=== PATIENT | female | born 2005 | race Two or more races ===

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

== ENCOUNTER 2025-05-16 20:56 | Emergency (ER) | payer MEDICAID, SELFPAY ==
[2025-05-16 20:58] VITALS: PULSE 112; RESP 18; O2SAT 99; BMI 19.5
--- NOTE | 2025-05-16 21:13 | PD.EDADULT ---
ED General RME/HPI General Chief complaint: Overdose Stated complaint: HOLD/5150 Time Seen by Provider: 05/16/25 21:12 Source: patient and RN notes reviewed Arrival date/time: 05/16/25 20:56 Mode of arrival: ambulatory Limitations: no limitations RME / HPI RME / HPI narrative: HPI: 19 year old female presents to the emergency department by police after the patient wanted to overdose on medications. The patient took 50 ibuprofen. She took 9 acetaminophen tablets unknown dose. These pills were taken at approximately 8 PM tonight. The patient took it so she can end her life. From home after taking 5 500mg Naproxen and 5 10mg Ambien over 12 hours ago. Brought in my family with concerns for toxicity. Denies Suicidal or homicidal thoughts or actions. No prior suicide attempts. According to the patient this was an attempt to get attention as there has been some recent verbal arguments with her boyfriend. Denies headaches, visual changes, tinnitus, paresthesias, chest pain, palpitations, shortness of breath, abdominal pain, back pain, nausea, vomiting, diarrhea, or any other symptoms. Denies other co-ingestions. Related Data Previous Rx's ?Medication ?Instructions ?Recorded acetaminophen 300 mg-codeine 30 mg 1 tab PO Q8H PRN pain #20 tabs 11/06/24 tablet Allergies Allergy/AdvReac Type Severity Reaction Status Date / Time No Known Allergies Allergy Verified 05/16/25 20:58 Review of Systems Review of Systems Systems Reviewed: All systems reviewed, normal except as documented ED Exam General Limitations: Present no limitations General appearance: Present alert and in no apparent distress Head Head exam: Present atraumatic Eye Eye exam: Present normal appearance, PERRL and EOMI ENT ENT exam: Present normal exam, normal oropharynx and mucous membranes moist Neck Neck exam: Present normal inspection, full ROM and trachea midline Chest Chest inspection: Present normal inspection and symmetric chest wall rise Respiratory Respiratory exam: Present normal lung sounds bilaterally Cardiovascular Cardiovascular exam: Present regular rate, normal rhythm and normal heart sounds Abdominal Exam Abdominal exam: Present soft and normal bowel sounds Extremities Exam Extremities exam: Present normal inspection and full ROM Back Exam Back exam: Present normal inspection and full ROM Neurological Exam Neurological exam: Present alert, oriented X3 and CN II-XII intact Psychiatric Psychiatric exam: Present normal affect and normal mood Skin Skin exam: Present warm, dry, intact and normal color Course Course Course Narrative: Signed out to Dr. Burkett 0 600 pending repeat labs, and pending medical clearance. Quality Measures none Orders Category Date Time Status IV [Insert IV] NOW Care 05/16/25 21:19 Active One-to-one observation NOW Care 05/16/25 21:12 Active Suicide precautions NOW Care 05/16/25 21:11 Active Acetaminophen Stat Lab 05/16/25 21:23 Completed Alcohol, Blood Medical Stat Lab 05/16/25 21:23 Completed CBC Stat Lab 05/16/25 21:23 Completed Comprehensive Metabolic Panel Stat Lab 05/16/25 21:23 Completed Drug Screen,Urine Stat Lab 05/16/25 21:25 Completed HCG Qualitative,Urine Stat Lab 05/16/25 21:25 Completed Salicylate Stat Lab 05/16/25 21:23 Completed activated charcoaL [Actidose-Aqua] Med 05/16/25 21:18 Discontinued 25 gm PO X1 ONE Vital Signs Vital signs: Vital Signs Temperature 99.0 F 05/16/25 21:14 Pulse Rate 86 05/16/25 21:14 Respiratory Rate 16 05/16/25 21:14 Blood Pressure 129/89 H 05/16/25 21:14 Pulse Oximetry (%) 98 05/16/25 21:14 Oxygen Delivery Method Room Air 05/16/25 21:14 Discharge Plan Plan Facility Pt Being Transferred to: Other-Specify in comment Discharge Disposition comment: Signed out to Dr. Burkett at 6 AM pending final disposition Patient condition on transfer: Stable Prescriptions/Referrals Prescriptions/Med Rec: No Action acetaminophen-codeine 300-30 mg tablet 1 tab PO Q8H MDD 6 PRN (Reason: pain) Qty: 20 0RF Problem List Clinical Impression: Drug overdose Patient/Caregiver Discharge Instructions Print Language: Belarusian Stand Alone Forms: [employer] Award Info., Patient Portal Info Letter MDM Narrative MDM hospital course (for use when minimal MDM required): Safety net established. See nurses notes. Discussed with poison control who at this time do not recommend an EKG. The patient arrives in no distress feeling and protecting airway. Safety net established. Activated charcoal given due to recommendations by poison control. Charcoal indicated due to late presentation and lack of significant toxicity on exam. No toxidrome identified. Labs unremarkable. The patient remained in the emergency department with stable vital signs. The patient consistently denies suicidal thoughts. Clinical Information Provided by: patient Medical Records reviewed None Meds/Rx considered, not ordered None Labs/Rad/Tests considered, not ordered None Chronic Illness/Social Conditions which may negatively complicate care or outcome(s)-explain: other (Depression) EKG EKG not done (Poison control did not want EKG) Labs Labs: interpreted by al Lab(s) Interpretation(s): White count is 8.1, otherwise hemoglobin 13/39 and normal. Platelets are normal. LFTs are normal. Total bili 0.5. AST 19, ALT 10, alk phos 57. hCG is negative. Positive opiates. Tylenol level 6.1 at 2123 otherwise drug screen is negative. Medication Administration(s) Medication Administration History Discontinued Medications Charcoal (Activated Charcoal 25 Gm/120 Ml Tube) 25 gm PO X1 ONE Stop: 05/16/25 21:19 Last Admin: 05/16/25 21:38 Dose: 25 gm Documented By: CB As above Consultations/Discussions re: Management Consult #1: Date/time: 05/16/25 1op Physician, specialty, service, details: Poison control called earlier see nurses notes. They do not want Tylenol just asked for Tylenol level and other labs. Consult #2: Date/time: 05/17/25 5:13 am Physician, specialty, service, details: Poison control request a repeat CMP, PT PTT, and Tylenol level. Diagnosis Differential Diagnosis ED Complaint MDM: Overdose. Tylenol overdose, other overdose, depression, anxiety, relations
[2025-05-16 21:14] VITALS: BP 129/89; PULSE 86; RESP 16; TEMP 37.2; O2SAT 98
--- NOTE | 2025-05-16 21:15 | PC.NURSE ---
CALLED POISON CONTROL SPOKE TO YUMIKO. PER POISON CONTROL RECOMMENDATION CHECK TYLENOL LEVEL, ASA, CMP CBC REPEAT IN 4HRS. ACTIVATE CHARCOAL, IV FLUIDS.
[2025-05-16 21:57] LABS: Basophils # (Auto) 0.1 Thou/mm3 (0.0-0.2); Basophils % (Auto) 1 % (0-2.5); Eosinophils # (Auto) 0.1 Thou/mm3 (0.0-0.5); Eosinophils % (Auto) 1 % (0-10); Hematocrit 39.2 % (36.0-46.0); Hemoglobin 13.0 g/dL (12.0-16.0); Immature Granulocytes Auto 0.03 Thou/mm3 (0.00-0.00); Lymphocytes # (Auto) 2.1 Thou/mm3 (1.0-5.0); Lymphocytes % (Auto) 26 % (10-50); Mean Corpuscular HGB Conc 33.2 g/dl (31.0-37.0); Mean Corpuscular Hemoglobin 31.0 pg (25.0-35.0); Mean Corpuscular Volume 93 fL (80-100); Monocytes # (Auto) 0.3 Thou/mm3 (0.0-0.8); Monocytes % (Auto) 4 % (0-12); Neutrophils # (Auto) 5.5 Thou/mm3 (1.8-7.7); Neutrophils % (Auto) 68 % (37-80); Nucleated Red Blood Cell # 0.00 Thou/mm3 (0.00-0.00); Nucleated Red Blood Cell % 0 /100 WBC (0); Platelet Count 423 Thou/mm3 (140-440); RDW Standard Deviation 44.8 fL (36.4-46.3); Red Blood Count 4.20 Miln/mm3 (4.00-5.20); White Blood Count 8.1 Thou/mm3 (4.5-11.0)
[2025-05-16 22:18] LABS: HCG Qualitative,Urine Negative
[2025-05-16 22:24] LABS: Acetaminophen 6.1 mcg/mL (10.0-20.0); Alanine Aminotransferase 10 U/L (10-49); Albumin, Serum 5.3 gm/dL (3.5-5.0); Albumin/Globulin Ratio 1.7 (1.2-2.2); Alcohol, Blood Medical < 3.0 mg/dL (0-10.0); Alkaline Phosphatase 57 U/L (46-116); Anion Gap 13 (7-16); Aspartate Amino Transferase 19 U/L (0-34); BUN/Creatinine Ratio 9 Ratio (12-20); Bilirubin,Total 0.5 mg/dL (0.3-1.2); Blood Urea Nitrogen 8 mg/dL (9-23); Calcium 9.8 mg/dL (8.3-10.6); Calcium (Corrected) 9.8 mg/dL (8.5-10.1); Carbon Dioxide 24.4 mMol/L (20.0-31.0); Chloride 107 mMol/L (98-107); Creatinine (Component) 0.9 mg/dL (0.6-1.3); Estimated Creatinine Clearance 72.0 mL/min (>60); Globulin 3.2 gm/dL (2.3-3.5); Glucose 101 mg/dL (74-106); Osmolality,Calculated 285 (275-295); Potassium 3.6 mMol/L (3.4-5.1); Salicylate < 3.0 mg/dL; Sodium 144 mMol/L (136-145); Total Protein 8.5 gm/dL (5.7-8.2); eGFR > 60 See Note
[2025-05-16 22:35] LABS: Amphetamine/Methamp Scrn,U Negative (Negative); Barbiturate Screen,Urine Negative (Negative); Benzodiazepines Screen,Urine Negative (Negative); Benzoylecgonine Screen, Ur Negative (Negative); Fentanyl Screen,Urine Negative (Negative); Opiate Screen,Urine Positive (Negative); THC Screen,Urine Negative (Negative)
[2025-05-16 23:43] VITALS: BP 92/67; PULSE 70; RESP 17; TEMP 36.7; O2SAT 97
[2025-05-17] VITALS (8 sets, daily range): BP systolic 88–110; BP diastolic 47–73; PULSE 53–72; RESP 15–21; TEMP 36.3–36.6; O2SAT 95–100
--- NOTE | 2025-05-17 05:14 | PC.NURSE ---
Poison control case # [id number].
[2025-05-17 06:59] LABS: Basophils # (Auto) 0.1 Thou/mm3 (0.0-0.2); Basophils % (Auto) 1 % (0-2.5); Eosinophils # (Auto) 0.2 Thou/mm3 (0.0-0.5); Eosinophils % (Auto) 3 % (0-10); Hematocrit 36.4 % (36.0-46.0); Hemoglobin 11.9 g/dL (12.0-16.0); Immature Granulocytes Auto 0.02 Thou/mm3 (0.00-0.00); Lymphocytes # (Auto) 2.2 Thou/mm3 (1.0-5.0); Lymphocytes % (Auto) 36 % (10-50); Mean Corpuscular HGB Conc 32.7 g/dl (31.0-37.0); Mean Corpuscular Hemoglobin 31.1 pg (25.0-35.0); Mean Corpuscular Volume 95 fL (80-100); Monocytes # (Auto) 0.5 Thou/mm3 (0.0-0.8); Monocytes % (Auto) 8 % (0-12); Neutrophils # (Auto) 3.1 Thou/mm3 (1.8-7.7); Neutrophils % (Auto) 52 % (37-80); Nucleated Red Blood Cell # 0.00 Thou/mm3 (0.00-0.00); Nucleated Red Blood Cell % 0 /100 WBC (0); Platelet Count 358 Thou/mm3 (140-440); RDW Standard Deviation 46.5 fL (36.4-46.3); Red Blood Count 3.83 Miln/mm3 (4.00-5.20); White Blood Count 5.9 Thou/mm3 (4.5-11.0)
[2025-05-17 07:26] LABS: Acetaminophen 6.8 mcg/mL (10.0-20.0); Alanine Aminotransferase 10 U/L (10-49); Albumin, Serum 4.6 gm/dL (3.5-5.0); Albumin/Globulin Ratio 1.7 (1.2-2.2); Alkaline Phosphatase 45 U/L (46-116); Anion Gap 11 (7-16); Aspartate Amino Transferase 20 U/L (0-34); BUN/Creatinine Ratio 9 Ratio (12-20); Bilirubin,Total 0.5 mg/dL (0.3-1.2); Blood Urea Nitrogen 9 mg/dL (9-23); Calcium 9.1 mg/dL (8.3-10.6); Calcium (Corrected) 9.1 mg/dL (8.5-10.1); Carbon Dioxide 26.6 mMol/L (20.0-31.0); Chloride 109 mMol/L (98-107); Creatinine (Component) 1.0 mg/dL (0.6-1.3); Estimated Creatinine Clearance 64.8 mL/min (>60); Globulin 2.7 gm/dL (2.3-3.5); Glucose 94 mg/dL (74-106); Osmolality,Calculated 291 (275-295); Potassium 4.0 mMol/L (3.4-5.1); Sodium 147 mMol/L (136-145); Total Protein 7.3 gm/dL (5.7-8.2); eGFR > 60 See Note
--- NOTE | 2025-05-17 07:45 | PC.SS ---
Addendum entered by Agustina Lundy 05/17/25 09:35: SS follow up note; Farhana from [facility] at bedside evaluating patient. Addendum entered by Agustina Lundy 05/17/25 08:12: SS follow up note: SS contacted [facility] and spoke to Leti, who informed SS that [facility] staff would be arriving at [facility] within 45min to 1hr. SS will update patient's nurse. Original Note: SS was informed by Jacques MAI that patient was medically cleared. SS will contact [facility] for MH evaluation.
--- NOTE | 2025-05-17 10:14 | PC.NURSE ---
GOT A CALL FROM POISON CONTROL AND I SPOKE TO SAW TO WHOM I GAVE AN UPDATE ON THIS PT, PER SAW, THEY WILL CLOSE OUT THE CASE
--- NOTE | 2025-05-17 10:49 | PD.EDADDENDU ---
Emergency Room Addendum Addendum Narrative: 0600: Care assumed from Dr. Burkett, the previous shift emergency physician. Past medical, surgical, social and family history reviewed. Vitals and home medications reviewed. I will assume the care of the patient at this time, pending labs and medical clearance for mental health evaluation. Please refer to the emergency department record for history and examination from initial visit.?The following addendum documentation note is intended to reflect any pending information, findings, or radiology results not included in the patient?s initial chart. Poison control was updated on repeat labs and have closed the case. Patient is medically cleared for mental health evaluation. 1050a: [facility] has evaluated the patient in the ED, state they have rescinded the hold. Patient and her sister are willing to safety plan. During my watch, the patient has remained stable. Will DC home.
--- NOTE | 2025-05-17 11:16 | PC.SS ---
Follow up note; SS was informed by Farhana from [facility] that patient has been cleared. Safety plan established with patient's sister, Oneyda. Resources were provided, as well as referral to [facility]. SS updated patient's nurse and Dr. Burkett.
== END 2025-05-17 11:41 | disposition home or self-care (01) ==
PROVIDERS: Emergency Medicine; Emergency Provider Family Medicine
DX: T39.1X2A Poisoning by 4-Aminophenol derivatives, intentional self-harm, initial encounter (principal); T39.312A Poisoning by propionic acid derivatives, intentional self-harm, initial encounter; F32.9 Major depressive disorder, single episode, unspecified
CPT/HCPCS: 36415; 80053; 80307; 80320; 80329; 81025; 85025; 96127; 99283; A9270; G0480